=== PATIENT | male | born 1985 | race Caucasian/White ===

== ENCOUNTER 2021-05-30 04:53 | Inpatient (IN) | payer OTHER, SELFPAY ==
[2021-05-30] VITALS (9 sets, daily range): BP systolic 116–135; BP diastolic 67–79; PULSE 69–120; RESP 16–30; TEMP 36.3–39.6; O2SAT 87–97; BMI 30.7
--- NOTE | ~2021-05-30 | XR_ITS ---
EXAMINATION: PORTABLE CHEST 1 VIEW CLINICAL INFORMATION: ? cough . COMPARISON: No recent pertinent prior studies are available for comparison. TECHNIQUE: Portable frontal view of the chest was obtained. FINDINGS: The lungs are well expanded. Coarsened reticular markings seen at the lung bases but no definitive focal infiltrate, effusion, edema, or pneumothorax. Cardiac and mediastinal silhouettes are within normal limits for technique. No acute bony abnormality seen. XR/XR chest 1V IMPRESSION: Coarsened reticular markings seen at the lung bases left more so than right. This does not have the typical appearance for consolidation. Very early infiltrate cannot be excluded. Clinical correlation and follow-up film would be helpful.
--- NOTE | ~2021-05-30 | CT_ITS ---
EXAMINATION: CTA CHEST PE STUDY CLINICAL INFORMATION: Reason for Exam COVID positive, elevated D-dimer, rule out PE COMPARISON: No pertinent prior studies are available for comparison. TECHNIQUE: Prior to contrast administration, noncontrast localization images were obtained. After the administration of 50 mL of Omnipaque nonionic IV contrast, contiguous thin slice helical images were obtained through the thorax. Reformatted MIP images in the coronal and sagittal planes were obtained at the acquisition workstation. This CT examination was performed using dose optimization techniques as appropriate, variously including the following: *Automated exposure control *Adjustment of mA and/or kV according to patient size (this includes techniques or standardized protocols for targeted exams where dose is matched to indication/reason for exam; i.e. extremities or head) *Use of iterative reconstruction technique DLP: 410 mGy-cm. FINDINGS: The bolus timing on this study was acceptable for visualization of the pulmonary arterial tree. There are no intraluminal pulmonary arterial filling defects present to suggest pulmonary embolism. Patchy bilateral airspace disease is seen with slight peripheral preservation consistent with atypical or viral infectious etiology. No abnormal pulmonary nodules or masses are appreciated. No significant hilar or mediastinal adenopathy. There is no evidence of pleural effusion or pneumothorax. The heart is normal in size. No evidence of ventricular septal bowing or right heart strain. Great vessels are normal. Otherwise the mediastinum is unremarkable. There is no pericardial effusion or pericardial thickening. Limited evaluation of the upper abdominal viscera is unremarkable. CT/CT angio chest PE protocol IMPRESSION: No evidence for pulmonary emboli. Patchy bilateral airspace disease is seen consistent with viral or atypical infectious etiology. VTE: Negative
[2021-05-30 06:12] LABS: Influenza A PCR NEGATIVE (Negative); Influenza B PCR NEGATIVE (Negative); Resp Syncy Virus RNA Qual PCR NEGATIVE (Negative)
[2021-05-30 06:15] LABS: SARS COV2 PCR INHOUSE POSITIVE (Negative)
[2021-05-30] MEDS: Acetaminophen 325 MG TABLET 975 MG PO (07:25)
--- NOTE | 2021-05-30 07:37 | ECG_ITS ---
Test Reason : UPPER RESPIRATORY Blood Pressure : / mmHG Vent. Rate : 105 BPM Atrial Rate : 105 BPM P-R Int : 138 ms QRS Dur : 092 ms QT Int : 330 ms P-R-T Axes : 039 049 016 degrees QTc Int : 436 ms Sinus tachycardia Otherwise normal ECG No previous ECGs available Referred By: Jurgen Wang Electronically Signed By:Reinaldo James
--- NOTE | 2021-05-30 07:38 | ED.GENADULT ---
HPI - General Adult General Chief complaint: Upper Respiratory Symptoms Stated complaint: COVID Symptoms Time Seen by Provider: 05/30/21 06:38 Source: patient Mode of arrival: ambulatory Limitations: no limitations History of Present Illness HPI narrative: 36-year-old male who presents emergency department for evaluation of COVID like symptoms. Patient states that his tested positive and had to be hospitalized at [facility] for 1 day secondary to viral pneumonia. Patient states that he has been sick for approximately 10 days. He complains of fever, chills, myalgias, arthralgias, fatigue, shortness of breath, chest pain, nausea without vomiting. Patient states that he is experiencing pain in the center of his chest which is worse with breathing and is mild to moderate intensity. He denied diarrhea or loss of sense of taste or smell. Related Data Allergies Allergy/AdvReac Type Severity Reaction Status Date / Time No Known Allergies Allergy Verified 05/30/21 05:12 Review of Systems Review of Systems: Yes all other systems are reviewed and are negative [facility] Past Medical History [facility] Narrative: Past medical history: None past surgical history: None. Social history: He denies tobacco use. He denies alcohol use. He denies drug use. Social History Social History Advance Directives: No Physical Exam Vital Signs: Vital Signs: Last Vital Signs Temp 98.4 F 05/30/21 10:26 Pulse 103 H 05/30/21 10:26 Resp 21 H 05/30/21 10:26 BP 119/70 05/30/21 10:26 Pulse Ox 95 05/30/21 10:26 Oxygen Flow Rate 2 05/30/21 09:19 Body Mass Index 30.7 Const: Other: Awake, alert, male, very pleasant and cooperative, diaphoretic, no respiratory distress or use of accessory muscles to breathe, he is diaphoretic HENMT: Head: Yes normal to inspection, Yes normocephalic and Yes atraumatic Ears: external ears normal General nose exam: Normal external nose present Face and sinus: Yes normal facial exam Mouth: Normal oral and palatal mucosa present Throat: Yes posterior oropharynx normal Eyes: General: appearance normal, both eyes and all related structures Pupils: Equal, round and reactive pupils present Neck: Neck: Yes normal visual inspection, Yes no lymphadenopathy, Yes trachea midline and Yes supple Chest: Chest palpation & inspection: normal inspection of the chest and normal palpation of entire chest wall Resp: Effort & Inspection: normal respiratory effort and able to speak in complete sentences Auscultation: clear to auscultation bilaterally Cardio: Rate: regular rate Rhythm: regular rhythm Heart sounds: S1 normal heart sound present, S2 normal heart sound present and no murmurs GI: Inspection: Yes normal to inspection Palpation (GI): Soft to palpation, nontender and no guarding Auscultation: normal bowel sounds : General: Yes no CVA tenderness Back/Spine/Pelvis: Back: no CVA tenderness Skin: General skin exam: no rashes or lesions noted and other (Diaphoretic, very hot to the touch) Neuro: Cranial nerves: Yes CN's II-XII intact bilaterally and Yes Equal, round and reactive pupils present Cognition (Neuro): normal cognition Motor exam (neuro): 5/5 motor strength present throughout Extrem: General: Yes normal to inspection Psych: Appearance: grossly normal Speech and movement: Normal speech and movement present Affect: normal affect Attitude: cooperative Thought process: Normal thought process present Thought content: Normal thought content present Course Course Course Narrative: 36-year-old male who presents emergency department for evaluation of COVID like symptoms times 10 days, patient's was recently diagnosed with COVID-[address] [facility] for viral pneumonia. The patient's symptoms are consistent with an acute viral infection. Vital signs reveal that he was febrile with a temperature of a 103.2?, patient was tachycardic with a pulse of 120, O2 saturations varied from 88% to 92% on the O2 saturation monitor. His physical examination revealed a normal lung exam and was otherwise unremarkable. Chest x-ray is consistent with a viral pneumonia. patient's COVID-19 test was positive. I ordered a CBC, CMP, D-dimer, PT/INR, PTT, lactic acid, troponin, EKG. The patient will be treated with normal saline IV x1 L, Decadron 10 mg IV, Reglan and 10 mg IV and Zithromax 500 mg orally. 1017: The patient's laboratory evaluation revealed a low white blood count of 4300 with a low absolute lymphocyte count of 0.7. Patient also has a low platelet count of [id number]. Of patient had an elevated D-dimer of 260. Chest x-ray is consistent with her stool/viral pneumonia. CT pulmonary angiogram PE protocol revealed no pulmonary embolism. Patient does have patchy bilateral airspace disease which is consistent with a viral or atypical infection. The patient's pulse oximetry monitor revealed episodes of hypoxia with his O2 saturation dropping down to ED 67%. The the patient's hypoxia was corrected with oxygen 2 L via nasal cannula. The patient's presentation is consistent with COVID-19 pneumonia with hypoxia. Given his hypoxia and his need for oxygen I will discuss admission with the covering hospitalist. 1033: I did discuss the patient's presentation with Dr. Pickens, the covering hospitalist and the patient will be admitted to the [facility] for further management. Medical Decision Making Lab Data Result diagrams: 05/30/21 07:47 05/30/21 07:47 Labs: Lab Results 05/30/21 05/30/21 05/30/21 Range/Units 05:25 07:47 07:47 WBC 4.3 L (4.8-10.8) X10*3/uL RBC 5.48 (4.60-5.80) X10*6/uL Hgb 15.6 (14.0-18.0) g/dl Hct 44.5 (42-52) % MCV 81.2 (80-98) fL MCH 28.5 (27.0-33.0) pg MCHC 35.1 (31.0-36.0) g/dl RDW 13.2 (11.0-16.0) % Plt Count 129 L (160-400) X10*3/uL MPV 10.0 (9.4-12.4) fL Immature Gran % (Auto) 0.2 (0.0-0.4) % Neut % (Auto) 76.5 H (45-73) % Lymph % (Auto) 16.8 L (20-40) % [place] % (Auto) 6.5 (2-11) % Eos % (Auto) 0.0 (0-4) % Baso % (Auto) 0.0 (0-2) % Lymph # (Auto) 0.7 L (1.2-4.9) X10*3/uL [place] # (Auto) 0.3 (0.1-1.2) X10*3/uL Eos # (Auto) 0.0 (0.0-0.4) X10*3/uL Baso # (Auto) 0.0 (0.0-0.2) X10*3/uL Abs Immat Gran (auto) 0.01 (0.00-0.03) X10*3/uL Absolute Neuts (auto) 3.3 (2.0-8.3) X10*3/uL Absolute Nucleated RBC 0.000 (0.0-0.012) X10*3/uL Nucleated RBC % (auto) 0.0 (0.0-0.2) /100WBC PT (9.9-13.0) SEC INR (0.9-1.1) APTT (24.1-38.0) SEC D-Dimer NG/ML Sodium 137 (135-145) mmol/L Potassium 3.5 (3.3-5.1) mmol/L Chloride 103 (96-108) mmol/L Carbon Dioxide 24 (22-29) mmol/L Anion Gap 14 (12-20) BUN 14 (9-16) mg/dL Creatinine 1.18 (0.5-1.4) mg/dL Estim Creat Clear Calc 105.2 Estimated GFR > 60 Random Glucose 106 (60-115) mg/dL Lactic Acid (0.5-2.0) mmol/L Calcium 8.6 (8.4-10.2) mg/dL Total Bilirubin 0.6 (0.0-1.0) mg/dL AST 48 H (5-37) U/L ALT 35 (0-40) U/L Alkaline Phosphatase 33 L (39-117) U/L Troponin I High Sens (<3.5-35.0) ng/L Total Protein 6.9 (6.5-8.0) g/dL Albumin 4.1 (3.5-5.0) g/dL Lipase 63 (8-78) U/L Coronavirus (PCR) POSITIVE A (Negative) Influenza Type A (PCR) NEGATIVE (Negative) Influenza Type B (PCR) NEGATIVE (Negative) RSV RNA Qual (PCR) NEGATIVE (Negative) 05/30/21 05/30/21 05/30/21 Range/Units 07:47 07:48 08:01 WBC (4.8-10.8) X10*3/uL RBC (4.60-5.80) X10*6/uL Hgb (14.0-18.0) g/dl Hct (42-52) % MCV (80-98) fL MCH (27.0-33.0) pg MCHC (31.0-36.0) g/dl RDW (11.0-16.0) % Plt Count (160-400) X10*3/uL MPV (9.4-12.4) fL Immature Gran % (Auto) (0.0-0.4) % Neut % (Auto) (45-73) % Lymph % (Auto) (20-40) % [place] % (Auto) (2-11) % Eos % (Auto) (0-4) % Baso % (Auto) (0-2) % Lymph # (Auto) (1.2-4.9) X10*3/uL [place] # (Auto) (0.1-1.2) X10*3/uL Eos # (Auto) (0.0-0.4) X10*3/uL Baso # (Auto) (0.0-0.2) X10*3/uL Abs Immat Gran (auto) (0.00-0.03) X10*3/uL Absolute Neuts (auto) (2.0-8.3) X10*3/uL Absolute Nucleated RBC (0.0-0.012) X10*3/uL Nucleated RBC % (auto) (0.0-0.2) /100WBC PT 14.4 H (9.9-13.0) SEC INR 1.3 H (0.9-1.1) APTT 36.1 (24.1-38.0) SEC D-Dimer 260 NG/ML Sodium (135-145) mmol/L Potassium (3.3-5.1) mmol/L Chloride (96-108) mmol/L Carbon Dioxide (22-29) mmol/L Anion Gap (12-20) BUN (9-16) mg/dL Creatinine (0.5-1.4) mg/dL Estim Creat Clear Calc Estimated GFR Random Glucose (60-115) mg/dL Lactic Acid 1.0 (0.5-2.0) mmol/L Calcium (8.4-10.2) mg/dL Total Bilirubin (0.0-1.0) mg/dL AST (5-37) U/L ALT (0-40) U/L Alkaline Phosphatase (39-117) U/L Troponin I High Sens 5.2 (<3.5-35.0) ng/L Total Protein (6.5-8.0) g/dL Albumin (3.5-5.0) g/dL Lipase (8-78) U/L Coronavirus (PCR) (Negative) Influenza Type A (PCR) (Negative) Influenza Type B (PCR) (Negative) RSV RNA Qual (PCR) (Negative)
[2021-05-30] MEDS: 0.9 % Sodium Chloride 1,000 ML 999 ML IV (07:48)
[2021-05-30 07:55] LABS: MANUAL DIFF FLAG NO
[2021-05-30] MEDS: Azithromycin 500 MG TABLET PO (07:58)
[2021-05-30] MEDS: dexAMETHasone sod phosphate 10 MG/ML VIAL IVPUSH (07:59)
[2021-05-30] MEDS: Metoclopramide HCl 10 MG/2 ML VIAL IVPUSH (07:59)
[2021-05-30] MEDS: Ketorolac Tromethamine 15 MG/ML VIAL 30 MG IVPUSH (07:59)
[2021-05-30 08:11] LABS: Hematocrit 44.5 % (42-52); Hemoglobin 15.6 g/dl (14.0-18.0); Imm Gran Abs Auto 0.01 X10*3/uL (0.00-0.03); Imm Gran Pct Auto 0.2 % (0.0-0.4); Lymphocytes Absolute Auto 0.7 X10*3/uL (1.2-4.9); Lymphocytes Percent Auto 16.8 % (20-40); Mean Corpuscular HGB Conc 35.1 g/dl (31.0-36.0); Mean Corpuscular Hemoglobin 28.5 pg (27.0-33.0); Mean Corpuscular Volume 81.2 fL (80-98); Monocytes Absolute Auto 0.3 X10*3/uL (0.1-1.2); Monocytes Percent Auto 6.5 % (2-11); Neutrophils Absolute Auto 3.3 X10*3/uL (2.0-8.3); Neutrophils Percent Auto 76.5 % (45-73); Platelet Count 129 X10*3/uL (160-400); Red Blood Count 5.48 X10*6/uL (4.60-5.80); Red Cell Distribution Width 13.2 % (11.0-16.0); White Blood Count 4.3 X10*3/uL (4.8-10.8)
[2021-05-30 08:20] LABS: Alanine Aminotransferase 35 U/L (0-40); Albumin Level 4.1 g/dL (3.5-5.0); Alkaline Phosphatase 33 U/L (39-117); Anion Gap 14 (12-20); Aspartate Amino Transferase 48 U/L (5-37); Bilirubin Total 0.6 mg/dL (0.0-1.0); Blood Urea Nitrogen 14 mg/dL (9-16); Calcium 8.6 mg/dL (8.4-10.2); Carbon Dioxide 24 mmol/L (22-29); Chloride 103 mmol/L (96-108); Creatinine Clr Calc Pharmacy 105.2; Estimated Glomerular Filt Rate > 60; Glucose Random 106 mg/dL (60-115); Lipase 63 U/L (8-78); Potassium 3.5 mmol/L (3.3-5.1); Sodium 137 mmol/L (135-145); Total Protein 6.9 g/dL (6.5-8.0)
[2021-05-30 08:23] LABS: Troponin-I High Sensitivity 5.2 ng/L (<3.5-35.0)
[2021-05-30 08:25] LABS: INTERNATIONAL NORM RATIO 1.3 (0.9-1.1); Prothrombin Time 14.4 SEC (9.9-13.0)
[2021-05-30 08:27] LABS: D Dimer 260 NG/ML; Partial Thromboplastin Time 36.1 SEC (24.1-38.0)
[2021-05-30] MEDS: iohexoL 350 MG/ML 100 ML INFUS..BTL 71 ML IV (09:45)
--- NOTE | 2021-05-30 11:15 | P.HPHOSP_ITS ---
History of Present Illness Date of Service: 05/30/21 Chief Complaint: fever, sob 36M presented with fever, sob. patient was exposed to spouse who had covid diagnosis. has been feeling ill for about 11 days. fevers, myalgias, diarrhea, sob. he is not vaccinated. he came to ED for worsening symptoms, found to have h ypoxia. Review of Systems Review of Systems: Constitutional: fevers Eyes: denies blurry vision ENT: denies sore throat CVS: denies chest pain Respiratory: dyspnea GI: see hpi : denies dysuria MSK: denies neck pain Skin: denies rash Neuro: denies specific motor weakness Psych: denies suicidal ideation Endocrine: denies heat/cold intolerance Hematologic: denies easy bleeding Allergy: denies hives PMFSH Family history: reviewed and not pertinent Social History (Updated 05/30/21 @ 11:18 by Antonio Hebert MD) Unable to assess alcohol history related to: Unknown Patient Tobacco Use Status: Tobacco use Unknown Use of substances other than those prescribed or required for medical reasons: No Advance Directives: No Meds Allergies Allergy/AdvReac Type Severity Reaction Status Date / Time No Known Allergies Allergy Verified 05/30/21 05:12 Active Medications: Current Medications Generic Name Dose Route Start Last Admin Trade Name Freq PRN Reason Stop Dose Admin Dexamethasone Sodium Phosphate 6 mg 05/31/21 09:00 Dexamethasone Sod Phosphate 4 Mg/Ml Vial IVPUSH DAILY GIOVANA Physical Exam Vital Signs and Narrative: Vital Signs: Last Vital Signs Temp 98.4 F 05/30/21 10:26 Pulse 103 H 05/30/21 10:26 Resp 21 H 05/30/21 10:26 BP 119/70 05/30/21 10:26 Pulse Ox 95 05/30/21 10:26 Oxygen Flow Rate 2 05/30/21 09:19 Body Mass Index 30.7 General: sob, diaphoretic HEENT: atraumatic Neck: normal to visual inspection CVS: S1, S2, RRR Resp: Crackles Chest: non tender GI: soft, non tender, non distended : no CVA tenderness Skin: no rashes Extremities: no edema Neuro: Oriented X3, grossly intact Psych: cooperative Results Labs CBC and Chem 7: 05/30/21 07:47 05/30/21 07:47 Labs: Laboratory Results - last 24 hr 05/30/21 05/30/21 05/30/21 05:25 07:47 07:47 MCV 81.2 MCH 28.5 MCHC 35.1 RDW 13.2 Plt Count 129 L MPV 10.0 Immature Gran % (Auto) 0.2 Neut % (Auto) 76.5 H Lymph % (Auto) 16.8 L [place] % (Auto) 6.5 Eos % (Auto) 0.0 Baso % (Auto) 0.0 Lymph # (Auto) 0.7 L [place] # (Auto) 0.3 Eos # (Auto) 0.0 Baso # (Auto) 0.0 Abs Immat Gran (auto) 0.01 Absolute Neuts (auto) 3.3 Absolute Nucleated RBC 0.000 Nucleated RBC % (auto) 0.0 PT INR APTT D-Dimer Anion Gap 14 Estim Creat Clear Calc 105.2 Estimated GFR > 60 Random Glucose 106 Lactic Acid Calcium 8.6 Total Bilirubin 0.6 AST 48 H ALT 35 Alkaline Phosphatase 33 L Troponin I High Sens Total Protein 6.9 Albumin 4.1 Lipase 63 Coronavirus (PCR) POSITIVE A Influenza Type A (PCR) NEGATIVE Influenza Type B (PCR) NEGATIVE RSV RNA Qual (PCR) NEGATIVE 05/30/21 05/30/21 05/30/21 07:47 07:48 08:01 MCV MCH MCHC RDW Plt Count MPV Immature Gran % (Auto) Neut % (Auto) Lymph % (Auto) [place] % (Auto) Eos % (Auto) Baso % (Auto) Lymph # (Auto) [place] # (Auto) Eos # (Auto) Baso # (Auto) Abs Immat Gran (auto) Absolute Neuts (auto) Absolute Nucleated RBC Nucleated RBC % (auto) PT 14.4 H INR 1.3 H APTT 36.1 D-Dimer 260 Anion Gap Estim Creat Clear Calc Estimated GFR Random Glucose Lactic Acid 1.0 Calcium Total Bilirubin AST ALT Alkaline Phosphatase Troponin I High Sens 5.2 Total Protein Albumin Lipase Coronavirus (PCR) Influenza Type A (PCR) Influenza Type B (PCR) RSV RNA Qual (PCR) Imaging Radiologist's Impressions: Impressions Chest X-Ray 05/30/21 06:34 IMPRESSION: Coarsened reticular markings seen at the lung bases left more so than right. This does not have the typical appearance for consolidation. Very early infiltrate cannot be excluded. Clinical correlation and follow-up film would be helpful. Chest CTA 05/30/21 09:04 IMPRESSION: No evidence for pulmonary emboli. Patchy bilateral airspace disease is seen consistent with viral or atypical infectious etiology. VTE: Negative Assessment and Plan (1) Pneumonia due to 2019 novel coronavirus: Status: Acute 36M presented with sob, fevers, found to have covid/hypoxia acute hypoxic respiratory failure, viral sepsis, due to covid pneumonia decadron wean o2 as tolerated monitor prognostic labs cte prophylaxis - xarelto Quality Stroke Does the patient have a stroke diagnosis?: No VTE Prior VTE?: No VTE Risk Level:: Medical - moderate - high VTE Device Contraindication: Treatment Not Indicated VTE Drug Contraindication: N/A - Med Ordered
--- NOTE | 2021-05-30 11:59 | PC.NURSE ---
x1 attempt to give report- awaiting callback
--- NOTE | 2021-05-30 12:11 | PC.NURSE ---
report given to liborio medina on med surg
[2021-05-30] MEDS: 0.9 % Sodium Chloride Flush 3 ML SYRINGE IVFLUSH ×2 (15:21→20:11)
[2021-05-31] VITALS (8 sets, daily range): BP systolic 116–138; BP diastolic 62–77; PULSE 80–100; RESP 18–20; TEMP 36.5–38.9; O2SAT 91–98
[2021-05-31 06:48] LABS: Hematocrit 43.2 % (42-52); Hemoglobin 14.9 g/dl (14.0-18.0); Mean Corpuscular HGB Conc 34.5 g/dl (31.0-36.0); Mean Corpuscular Hemoglobin 28.3 pg (27.0-33.0); Mean Platelet Volume 9.7 fL (9.4-12.4); Platelet Count 151 X10*3/uL (160-400); Red Blood Count 5.27 X10*6/uL (4.60-5.80); Red Cell Distribution Width 13.2 % (11.0-16.0); White Blood Count 6.3 X10*3/uL (4.8-10.8)
[2021-05-31 07:01] LABS: D Dimer 207 NG/ML
[2021-05-31 07:13] LABS: Anion Gap 12 (12-20); Blood Urea Nitrogen 15 mg/dL (9-16); C Reactive Protein 1.92 mg/dL (< or = 0.50); Calcium 8.7 mg/dL (8.4-10.2); Carbon Dioxide 26 mmol/L (22-29); Chloride 106 mmol/L (96-108); Creatinine Clr Calc Pharmacy 119.4; Estimated Glomerular Filt Rate > 60; Glucose Fasting 119 mg/dL (60-99); Lactate Dehydrogenase 272 U/L (118-273); Sodium 139 mmol/L (135-145)
[2021-05-31] MEDS: dexAMETHasone sod phosphate 4 MG/ML VIAL 6 MG IVPUSH (09:14)
[2021-05-31] MEDS: 0.9 % Sodium Chloride Flush 3 ML SYRINGE IVFLUSH ×3 (09:14→22:04)
[2021-05-31] MEDS: Rivaroxaban 10 MG TABLET PO (09:15)
--- NOTE | 2021-05-31 09:17 | HO.PM.IMPN ---
Subjective Subjective Date of Service: 05/31/21 Interval History: sob Constitutional Constitutional: Reports no additional constitutional complaints Eyes Eyes: Reports no additional eye complaints Physical Exam Vital Signs: Vital Signs: Last Vital Signs Temp 98.7 F 05/31/21 08:00 Pulse 91 05/31/21 08:00 Resp 18 05/31/21 08:00 BP 128/77 05/31/21 08:00 Pulse Ox 93 05/31/21 08:00 Oxygen Flow Rate 2 05/30/21 09:19 Body Mass Index 30.7 General: AO X 3, diaphoretic, sob Resp: Crackles CVS: S1,S2,RRR GI: soft, non tender, non distended Neuro: motor grossly intact Psych: appropriate affect Objective Data Current Medications Generic Name Dose Route Start Last Admin Trade Name Tayeq PRN Reason Stop Dose Admin Dexamethasone Sodium Phosphate 6 mg 05/31/21 09:00 05/31/21 09:14 Dexamethasone Sod Phosphate 4 Mg/Ml Vial IVPUSH 6 mg DAILY GIOVANA Administration Rivaroxaban 10 mg 05/31/21 09:00 05/31/21 09:15 Rivaroxaban 10 Mg Tablet PO 10 mg DAILY GIOVANA Administration Sodium Chloride 3 ml 05/30/21 16:00 05/31/21 09:14 0.9 % Sodium Chloride Flush 3 Ml Syringe IVFLUSH 3 ml QSHIFT GIOVANA Administration Labs CBC & Chem 7: 05/31/21 06:07 05/31/21 06:07 Labs: Laboratory Results - last 24 hr 05/31/21 05/31/21 05/31/21 06:07 06:07 06:07 MCV 82.0 MCH 28.3 MCHC 34.5 RDW 13.2 Plt Count 151 L MPV 9.7 Absolute Nucleated RBC 0.000 Nucleated RBC % (auto) 0.0 D-Dimer 207 Anion Gap 12 Estim Creat Clear Calc 119.4 Estimated GFR > 60 Fasting Glucose 119 H Calcium 8.7 Lactate Dehydrogenase 272 C-Reactive Protein 1.92 H Assessment and Plan (1) Pneumonia due to 2019 novel coronavirus: Status: Acute Assessment and Plan: ?36M presented with sob, fevers, found to have covid/hypoxia acute hypoxic respiratory failure, viral sepsis, due to covid pneumonia decadron day / wean o2 as tolerated monitor prognostic labs cte prophylaxis - xarelto Quality Stroke Does the patient have a stroke diagnosis?: No VTE Prior VTE?: No VTE Risk Level:: Medical - moderate - high VTE Device Contraindication: Treatment Not Indicated VTE Drug Contraindication: N/A - Med Ordered
[2021-05-31] MEDS: guaiFENesin 100 MG/5 ML LIQUID PO ×2 (09:30→22:04)
[2021-05-31] MEDS: Acetaminophen 325 MG TABLET 650 MG PO (12:00)
--- NOTE | 2021-05-31 14:10 | MHC.CM.PN ---
COVID +: Called patient in room; no answer. Called (Pina), no answer and left a VM requesting a return call for interview. CM to follow.
--- NOTE | 2021-05-31 15:33 | MHC.CM.PN ---
Attempted a second time to call patient in his room. No answer. 3 total calls made today (twice to patient, once to w/message left requesting return call). CM to make attempt tomorrow 06/01/21. CM to follow.
[2021-06-01] VITALS: BP 115/60; PULSE 105; RESP 18; TEMP 37.1; O2SAT 93
[2021-06-01 04:00] VITALS: BP 123/57; PULSE 77; RESP 16; TEMP 36.8; O2SAT 89
[2021-06-01 06:55] LABS: Hematocrit 42.6 % (42-52); Hemoglobin 14.6 g/dl (14.0-18.0); Mean Corpuscular HGB Conc 34.3 g/dl (31.0-36.0); Mean Corpuscular Hemoglobin 28.2 pg (27.0-33.0); Mean Corpuscular Volume 82.2 fL (80-98); Platelet Count 172 X10*3/uL (160-400); Red Blood Count 5.18 X10*6/uL (4.60-5.80); Red Cell Distribution Width 13.4 % (11.0-16.0); White Blood Count 6.5 X10*3/uL (4.8-10.8)
[2021-06-01 07:05] VITALS: O2SAT 91
[2021-06-01 07:22] LABS: Anion Gap 18 (12-20); Blood Urea Nitrogen 13 mg/dL (9-16); C Reactive Protein 1.55 mg/dL (< or = 0.50); Calcium 8.4 mg/dL (8.4-10.2); Carbon Dioxide 23 mmol/L (22-29); Chloride 103 mmol/L (96-108); Creatinine Clr Calc Pharmacy 119.4; Estimated Glomerular Filt Rate > 60; Glucose Fasting 109 mg/dL (60-99); Lactate Dehydrogenase 357 U/L (118-273); Potassium 4.5 mmol/L (3.3-5.1); Sodium 139 mmol/L (135-145)
[2021-06-01 07:54] LABS: D Dimer < 200 NG/ML
[2021-06-01 08:00] VITALS: BP 126/81; PULSE 98; RESP 20; TEMP 37.2; O2SAT 94
[2021-06-01] MEDS: Rivaroxaban 10 MG TABLET PO (08:18)
[2021-06-01] MEDS: dexAMETHasone sod phosphate 4 MG/ML VIAL 6 MG IVPUSH (08:18)
[2021-06-01] MEDS: guaiFENesin 100 MG/5 ML LIQUID PO (08:18)
[2021-06-01] MEDS: 0.9 % Sodium Chloride Flush 3 ML SYRINGE IVFLUSH (08:19)
--- NOTE | 2021-06-01 09:36 | MHC.CM.PN ---
pt lives c his in their home. he reports that he is independent in his care. his can help him if he needs it, this will include a ride home at dc. pt denies the need for vna at dc. dc plan is home no svcs when medically stable. cm to cont. to follow.
--- NOTE | 2021-06-01 11:23 | PM.DS ---
DS: Providers Provider Date of Service: 06/01/21 Date of admission: 05/30/21 11:14 Primary care physician: Unknown Physician DS: Diagnosis Discharge Diagnosis (1) Pneumonia due to 2019 novel coronavirus: Status: Acute DS: Medications Discharge Medications Home Medications: Previous Rx's Medication Instructions Recorded dexamethasone 6 mg tablet 6 mg PO DAILY #7 tab 06/01/21 (Decadron) guaifenesin 100 mg/5 mL oral liquid 100 mg PO Q6H PRN #473 ml 06/01/21 DS: Summary Hospital Course Hospital Course: patient was admitted for viral sepsis and acute hypoxic respiratory failure due to COVID 19. he was treated with decadron and Oxygen. his symptoms improved. he was able to be weaned off oxygen. patient will be discharged home with 7 more days of decadron. Time Spent with Patient Time attestation: Total time spent providing and/or coordinating discharge services: Discharge coordination time: Greater than 30 minutes Quality: Stroke Does the patient have a stroke diagnosis?: No Physical Exam Vital Signs: Vital Signs: Last Vital Signs Temp 98.9 F 06/01/21 08:00 Pulse 98 06/01/21 08:00 Resp 20 06/01/21 08:00 BP 126/81 06/01/21 08:00 Pulse Ox 94 06/01/21 08:00 Oxygen Flow Rate 2 05/30/21 09:19 Body Mass Index 30.7 General: AO X 3, no acute distress Resp: CTA bilateral CVS: S1,S2,RRR GI: soft, non tender, non distended Neuro: motor grossly intact Psych: appropriate affect DS: Data Data Completed and Pending Labs on day of discharge: Laboratory Results - last 24 hr 06/01/21 06/01/21 06/01/21 05:49 05:50 05:50 WBC 6.5 RBC 5.18 Hgb 14.6 Hct 42.6 MCV 82.2 MCH 28.2 MCHC 34.3 RDW 13.4 Plt Count 172 MPV 10.0 Absolute Nucleated RBC 0.000 Nucleated RBC % (auto) 0.0 D-Dimer < 200 Sodium 139 Potassium 4.5 Chloride 103 Carbon Dioxide 23 Anion Gap 18 BUN 13 Creatinine 1.04 Estim Creat Clear Calc 119.4 Estimated GFR > 60 Fasting Glucose 109 H Calcium 8.4 Lactate Dehydrogenase 357 H C-Reactive Protein 1.55 H Preliminary micro results at discharge 05/30/21 08:20 Blood Culture - Preliminary Blood - Venous No growth after 48 hours. 05/30/21 07:47 Blood Culture - Preliminary Blood - Venous No growth after 48 hours. Discharge Plan Discharge Patient Disposition: Home, Self-Care Discharge Diagnosis: covid Referrals: Physician,Unknown [Primary Care Provider] - 1 Week Discharge Medications: New guaifenesin 100 mg/5 mL Liquid 100 mg PO Q6H PRN (Reason: cough) Qty: 473 RF: 0 dexamethasone [Decadron] 6 mg tablet 6 mg PO DAILY Qty: 7 RF: 0 Discharge Orders: Discharge Order (Routine); Ordered 06/01/21 Ordered By: Antonio Hebert Diet: advance to usual diet Activity on Discharge: As tolerated Stand Alone Forms: Patient Portal Discharge page Care Plan Goals: recovery Health Concerns: covid Plan of Treatment: For most adults with COVID-19 illness, isolation and precautions?can be discontinued 10 days after symptom onset*?and after resolution of fever for at least 24 hours, without the use of fever-reducing medications, and with improvement of other symptoms... monitor O2, if persistently less than 90% return to ED Assessment: see above
== END 2021-06-01 12:00 | disposition home or self-care (01) | DRG 720 ==
LOC: HO.ED 10:34 → HO.IMC 11:50
PROVIDERS: Admitting Provider Internal Medicine; Emergency Provider Emergency Medicine Emergency Medical Services; Visit Provider Internal Medicine
DX: A41.89 Other specified sepsis (principal); J96.01 Acute respiratory failure with hypoxia; J12.82 Pneumonia due to coronavirus disease 2019; U07.1 COVID-19
CPT/HCPCS: 0241U; 11104; 36415; 71045; 71275; 80048; 80053; 80076; 82550; 82728; 83605; 83615; 83690; 83735; 83880; 84145; 84484; 85025; 85027; 85379; 85610; 85730; 86140; 87040; 93005; 99285; J1100; J1885; J2765; Q9967

== ENCOUNTER 2021-06-02 15:34 | Inpatient (IN) | payer OTHER, SELFPAY ==
--- NOTE | ~2021-06-02 | XR_ITS ---
EXAMINATION: XR CHEST CLINICAL INFORMATION: Covid positive with worsening shortness of breath COMPARISON: Chest radiograph and CT chest dated 05/30/2021 TECHNIQUE: Frontal view of the chest was obtained. FINDINGS: Compared to the prior chest radiograph, lung volumes have decreased in pulmonary infiltrates have increased consistent with progressive Covid related to pneumonia. Infiltrates are seen scattered throughout the lungs. No effusions. Heart size normal. XR/XR chest 1V IMPRESSION: Progressive pulmonary infiltrates consistent with worsening Covid 19 pneumonia.
[2021-06-02 15:45] VITALS: O2SAT 87
[2021-06-02 15:48] VITALS: BP 118/83; PULSE 89; RESP 24; TEMP 36.8; O2SAT 95; BMI 30.7
--- NOTE | 2021-06-02 16:29 | ECG_ITS ---
Test Reason : SOB Blood Pressure : / mmHG Vent. Rate : 098 BPM Atrial Rate : 098 BPM P-R Int : 136 ms QRS Dur : 094 ms QT Int : 348 ms P-R-T Axes : 040 025 017 degrees QTc Int : 444 ms Normal sinus rhythm Normal ECG When compared with ECG of 30-MAY-2021 08:11, No significant change was found Referred By: Jeanie Araiza Electronically Signed By:ESTHELA LONGORIA MD
--- NOTE | 2021-06-02 16:53 | ED_ITS ---
HPI - SOB/Dyspnea General Chief Complaint: Dyspnea Stated Complaint: Covid+ diff breathing Time Seen by Provider: 06/02/21 16:06 Source: patient Mode of arrival: ambulatory Limitations: no limitations History of Present Illness HPI Narrative: 36-year-old male known COVID positive here with shortness of breath increasing with oxygen saturation 88% at home. Of note patient was admitted to this facility 05/30-06/01 for COVID. He was with Decadron and oxygen and improved on a course of Decadron. Patient tells me he is taking this. Today feels worse. More short of breath, weak, only able to walk several steps without having to take a breath. Had left over azithromycin which he started today. No fevers or chills. No leg swelling, pain, chest pain. Had not received the COVID vaccine. Prior to admission on Tuesday he had been sick for approximately 11 days. is COVID positive at home. Related Data Previous Rx's Medication Instructions Recorded dexamethasone 6 mg tablet 6 mg PO DAILY #7 tab 06/01/21 (Decadron) guaifenesin 100 mg/5 mL oral liquid 100 mg PO Q6H PRN #473 ml 06/01/21 Allergies Allergy/AdvReac Type Severity Reaction Status Date / Time No Known Allergies Allergy Verified 06/02/21 15:47 Review of Systems Review of Systems: Yes all other systems are reviewed and are negative Constitutional: Constitutional: Reports no additional constitutional complaints, Denies body ache(s), Denies chills, Denies fever(s), Denies headache(s) and Reports weakness Eyes: Eyes: Reports no additional eye complaints and Denies change in vision ENT: Reports system reviewed and no additional complaints, except as documented, Denies dizziness, Denies headache(s), Denies nasal congestion, Denies nasal discharge and Denies neck pain Cardiovascular: Cardiovascular: Reports no additional cardiovascular complaints, Denies chest pain, Denies leg edema and Reports dyspnea Respiratory: Respiratory: Reports no additional respiratory complaints, Denies cough and Reports dyspnea Gastrointestinal: Gastrointestinal: Reports no additional gastrointestinal complaints, Denies abdominal pain, Denies diarrhea, Denies nausea and Denies vomiting Genitourinary: Genitourinary: Denies urinary incontinence Musculoskeletal: Musculoskeletal: Reports no additional musculoskeletal complaints, Denies back pain, Denies arthralgias, Denies joint swelling, Denies neck pain, Denies numbness and Denies tingling Integumentary/Breasts: Skin/Breast: Reports system reviewed and no additional complaints, except as docu and Denies rash Neurologic: Reports system reviewed and no additional complaints, except as documented, Denies Abnormal speech present, Denies dizziness, Denies headache(s), Denies numbness, Denies tingling and Reports weakness PMFSH Past Medical History Attestation statement: The following information was validated with the patient. Source: old records reviewed and nursing notes reviewed Social History Social History Household Members: Spouse and Children Housing: House Do you presently have visiting nurse or other home services: No Unable to assess alcohol history related to: Unknown Patient Tobacco Use Status: Never used Tobacco Advance Directives: No Advance Directives Information Provided: No service: No Current occupational status: unemployed Physical Exam Vital Signs: Vital Signs: Last Vital Signs Temp 98.2 F 06/02/21 15:48 Pulse 97 06/02/21 17:36 Resp 24 H 06/02/21 17:36 BP 118/80 06/02/21 17:36 Pulse Ox 95 06/02/21 17:36 Oxygen Flow Rate 4 06/02/21 15:48 Body Mass Index 30.7 Const: General: cooperative, healthy appearing, comfortable and no acute distress Orientation/consciousness: patient oriented x3 Limitations: no limitations HENMT: Head: Yes normal to inspection Ears: hearing grossly normal bilaterally General nose exam: Normal external nose present Face and sinus: Yes normal facial exam Mouth: Normal oral and palatal mucosa present Throat: Yes posterior oropharynx normal Eyes: General: appearance normal, both eyes and all related structures Pupils: Equal, round and reactive pupils present Neck: Neck: Yes normal visual inspection Chest: Chest palpation & inspection: normal inspection of the chest Resp: Other: Diminished breath sounds bilaterally Effort & Inspection: normal respiratory effort Auscultation: clear to auscultation bilaterally Cardio: Rate: regular rate Rhythm: regular rhythm Peripheral pulses: Peripheral pulses 2+ throughout GI: Inspection: Yes normal to inspection Palpation (GI): Soft to palpation and nontender Auscultation: normal bowel sounds Back/Spine/Pelvis: Thoracic/Lumbar Spine: thoracic and lumbar spine normal to inspection Skin: General skin exam: no rashes or lesions noted Neuro: General: patient oriented x3, no focal motor deficits and normal sensation to monofilament Cranial nerves: Yes Equal, round and reactive pupils present Cognition (Neuro): normal cognition Speech: No Abnormal speech present Gait exam (Neuro): Normal gait present Motor exam (neuro): 5/5 motor strength present throughout Extrem: General: Yes normal to inspection, Yes no pedal edema and Yes no calf tenderness Course Course Course Narrative: 36-year-old male known COVID positive here with increasing shortness of breath and weakness with a room air saturation of 88%. Of note patient was discharged from this facility yesterday after being admitted and treated with Decadron. He is currently still taking Decadron. On arrival the patient's oxygen saturation was 88%. He has mild tachypnea with a rate of 24-26. He is afebrile. Will check labs, EKG, chest x-ray. Discussed with medicine as patient will require admission due to hypoxia. Requesting repeat COVID screen. Hypoxia and tachypnea from a viral infection. 1800-Admitted to medicine. MDM - SOB/Dyspnea MDM Narrative Medical decision making narrative: COVID-19, pneumonia, PE Medical Records Attestation: I reviewed the patient's medical records. Lab Data Attestation: I reviewed the patient's lab results. Result diagrams: 06/02/21 17:35 06/02/21 17:35 Labs: Lab Results 06/02/21 06/02/21 06/02/21 Range/Units 17:35 17:35 17:35 WBC 6.6 (4.8-10.8) X10*3/uL RBC 5.52 (4.60-5.80) X10*6/uL Hgb 15.6 (14.0-18.0) g/dl Hct 44.9 (42-52) % MCV 81.3 (80-98) fL MCH 28.3 (27.0-33.0) pg MCHC 34.7 (31.0-36.0) g/dl RDW 13.3 (11.0-16.0) % Plt Count 210 (160-400) X10*3/uL MPV 9.3 L (9.4-12.4) fL Immature Gran % (Auto) 0.5 H (0.0-0.4) % Neut % (Auto) 88.7 H (45-73) % Lymph % (Auto) 5.3 L (20-40) % [place] % (Auto) 5.5 (2-11) % Eos % (Auto) 0.0 (0-4) % Baso % (Auto) 0.0 (0-2) % Lymph # (Auto) 0.4 L (1.2-4.9) X10*3/uL [place] # (Auto) 0.4 (0.1-1.2) X10*3/uL Eos # (Auto) 0.0 (0.0-0.4) X10*3/uL Baso # (Auto) 0.0 (0.0-0.2) X10*3/uL Abs Immat Gran (auto) 0.03 (0.00-0.03) X10*3/uL Absolute Neuts (auto) 5.8 (2.0-8.3) X10*3/uL Absolute Nucleated RBC 0.000 (0.0-0.012) X10*3/uL Nucleated RBC % (auto) 0.0 (0.0-0.2) /100WBC PT 13.0 (9.9-13.0) SEC INR 1.1 (0.9-1.1) D-Dimer 289 NG/ML Sodium 140 (135-145) mmol/L Potassium 4.3 (3.3-5.1) mmol/L Chloride 104 (96-108) mmol/L Carbon Dioxide 26 (22-29) mmol/L Anion Gap 14 (12-20) BUN 12 (9-16) mg/dL Creatinine 0.85 (0.5-1.4) mg/dL Estim Creat Clear Calc 145.9 Estimated GFR > 60 Random Glucose 137 H (60-115) mg/dL Lactic Acid (0.5-2.0) mmol/L Calcium 8.8 (8.4-10.2) mg/dL Magnesium 2.2 (1.6-2.6) mg/dL Ferritin 666 H (20-250) ng/mL Total Bilirubin 0.7 (0.0-1.0) mg/dL Direct Bilirubin 0.4 (0.0-0.5) mg/dL AST 60 H (5-37) U/L ALT 60 H (0-40) U/L Alkaline Phosphatase 34 L (39-117) U/L Lactate Dehydrogenase 355 H (118-273) U/L Total Creatine Kinase 493 H (38-174) U/L Troponin I High Sens (<3.5-35.0) ng/L C-Reactive Protein 3.10 H (< or = 0.50) mg/dL B-Natriuretic Peptide (<100) pg/mL Total Protein 7.0 (6.5-8.0) g/dL Albumin 4.0 (3.5-5.0) g/dL Procalcitonin ng/mL 06/02/21 06/02/21 06/02/21 Range/Units 17:35 17:35 17:35 WBC (4.8-10.8) X10*3/uL RBC (4.60-5.80) X10*6/uL Hgb (14.0-18.0) g/dl Hct (42-52) % MCV (80-98) fL MCH (27.0-33.0) pg MCHC (31.0-36.0) g/dl RDW (11.0-16.0) % Plt Count (160-400) X10*3/uL MPV (9.4-12.4) fL Immature Gran % (Auto) (0.0-0.4) % Neut % (Auto) (45-73) % Lymph % (Auto) (20-40) % [place] % (Auto) (2-11) % Eos % (Auto) (0-4) % Baso % (Auto) (0-2) % Lymph # (Auto) (1.2-4.9) X10*3/uL [place] # (Auto) (0.1-1.2) X10*3/uL Eos # (Auto) (0.0-0.4) X10*3/uL Baso # (Auto) (0.0-0.2) X10*3/uL Abs Immat Gran (auto) (0.00-0.03) X10*3/uL Absolute Neuts (auto) (2.0-8.3) X10*3/uL Absolute Nucleated RBC (0.0-0.012) X10*3/uL Nucleated RBC % (auto) (0.0-0.2) /100WBC PT (9.9-13.0) SEC INR (0.9-1.1) D-Dimer NG/ML Sodium (135-145) mmol/L Potassium (3.3-5.1) mmol/L Chloride (96-108) mmol/L Carbon Dioxide (22-29) mmol/L Anion Gap (12-20) BUN (9-16) mg/dL Creatinine (0.5-1.4) mg/dL Estim Creat Clear Calc Estimated GFR Random Glucose (60-115) mg/dL Lactic Acid 1.1 (0.5-2.0) mmol/L Calcium (8.4-10.2) mg/dL Magnesium (1.6-2.6) mg/dL Ferritin (20-250) ng/mL Total Bilirubin (0.0-1.0) mg/dL Direct Bilirubin (0.0-0.5) mg/dL AST (5-37) U/L ALT (0-40) U/L Alkaline Phosphatase (39-117) U/L Lactate Dehydrogenase (118-273) U/L Total Creatine Kinase (38-174) U/L Troponin I High Sens 3.7 (<3.5-35.0) ng/L C-Reactive Protein (< or = 0.50) mg/dL B-Natriuretic Peptide 11 (<100) pg/mL Total Protein (6.5-8.0) g/dL Albumin (3.5-5.0) g/dL Procalcitonin 0.09 ng/mL Imaging Data Chest x-ray: Attestation: I personally reviewed and interpreted this imaging study as follows: Radiologist's impression: FINDINGS: Compared to the prior chest radiograph, lung volumes have decreased in pulmonary infiltrates have increased consistent with progressive Covid related to pneumonia. Infiltrates are seen scattered throughout the lungs. No effusions. Heart size normal. XR/XR chest 1V IMPRESSION: Progressive pulmonary infiltrates consistent with worsening Covid 19 pneumonia. ECG Data Attestation: I personally reviewed and interpreted this ECG as follows: ECG interpretation date: 06/02/21 ECG interpretation time: 10:28 Interpretation: Normal sinus rhythm with a rate of 98, normal DE, normal QRS, normal QT Discharge Plan Discharge Clinical Impression: Pneumonia due to 2019 novel coronavirus, Hypoxia Patient Disposition: Admitted As Inpatient
[2021-06-02 17:36] VITALS: BP 118/80; PULSE 97; RESP 24; O2SAT 95
[2021-06-02 17:46] LABS: MANUAL DIFF FLAG NO
[2021-06-02 17:48] LABS: Hematocrit 44.9 % (42-52); Hemoglobin 15.6 g/dl (14.0-18.0); Imm Gran Abs Auto 0.03 X10*3/uL (0.00-0.03); Imm Gran Pct Auto 0.5 % (0.0-0.4); Lymphocytes Absolute Auto 0.4 X10*3/uL (1.2-4.9); Lymphocytes Percent Auto 5.3 % (20-40); Mean Corpuscular HGB Conc 34.7 g/dl (31.0-36.0); Mean Corpuscular Hemoglobin 28.3 pg (27.0-33.0); Mean Corpuscular Volume 81.3 fL (80-98); Mean Platelet Volume 9.3 fL (9.4-12.4); Monocytes Absolute Auto 0.4 X10*3/uL (0.1-1.2); Monocytes Percent Auto 5.5 % (2-11); Neutrophils Absolute Auto 5.8 X10*3/uL (2.0-8.3); Neutrophils Percent Auto 88.7 % (45-73); Platelet Count 210 X10*3/uL (160-400); Red Blood Count 5.52 X10*6/uL (4.60-5.80); Red Cell Distribution Width 13.3 % (11.0-16.0); White Blood Count 6.6 X10*3/uL (4.8-10.8)
--- NOTE | 2021-06-02 17:52 | PM.IMHP ---
History of Present Illness Date of Service: 06/02/21 Chief Complaint: shortness of breath, known covid patient discharged yesterday 36 year old male healthy, unvaccinated for covid who contracted covid from about 14 days ago. He was admitted to the hospital for hypoxia and discharged yesterday after 2 days in the hospital with oxygen and steroid therapy. He returns today because his oxygen level has been droping to as los as 85 to 88 at home, although without any significant increased in his shortness of breath. CXR shows progressive pulmonary infiltrate consistent with worsen covid. His oxygen level is now 94% 4 liters by nasal canula. Review of Systems Review of Systems: Gen: no fever Resp: +sob, cough CV: no chest, no BURNETT, no leg edema GI: No n/v, no abd pain Neuro: No confusion Yes all other systems are reviewed and are [facility] Social History Household Members: Spouse and Children Housing: House Do you presently have visiting nurse or other home services: No Unable to assess alcohol history related to: Unknown Patient Tobacco Use Status: Never used Tobacco Advance Directives: No Advance Directives Information Provided: No service: No Current occupational status: unemployed Meds Allergies Allergy/AdvReac Type Severity Reaction Status Date / Time No Known Allergies Allergy Verified 06/02/21 15:47 Active Medications: Current Medications Generic Name Dose Route Start Last Admin Trade Name Freq PRN Reason Stop Dose Admin Pharmacy Consult 1 each 06/02/21 16:30 Consult Rx Perform Med Rec MISCELLANE ONCE PRN Consult order Physical Exam Vital Signs and Narrative: Vital Signs: Last Vital Signs Temp 98.2 F 06/02/21 15:48 Pulse 97 06/02/21 17:36 Resp 24 H 06/02/21 17:36 BP 118/80 06/02/21 17:36 Pulse Ox 95 06/02/21 17:36 Oxygen Flow Rate 4 06/02/21 15:48 Body Mass Index 30.7 Results Labs CBC and Chem 7: 06/02/21 17:35 06/02/21 17:35 Labs: Laboratory Results - last 24 hr 06/02/21 17:35 MCV 81.3 MCH 28.3 MCHC 34.7 RDW 13.3 Plt Count 210 MPV 9.3 L Immature Gran % (Auto) 0.5 H Neut % (Auto) 88.7 H Lymph % (Auto) 5.3 L [place] % (Auto) 5.5 Eos % (Auto) 0.0 Baso % (Auto) 0.0 Lymph # (Auto) 0.4 L [place] # (Auto) 0.4 Eos # (Auto) 0.0 Baso # (Auto) 0.0 Abs Immat Gran (auto) 0.03 Absolute Neuts (auto) 5.8 Absolute Nucleated RBC 0.000 Nucleated RBC % (auto) 0.0 Imaging Radiologist's Impressions: Impressions Chest X-Ray 06/02/21 16:29 IMPRESSION: Progressive pulmonary infiltrates consistent with worsening Covid 19 pneumonia. Assessment and Plan (1) Pneumonia due to 2019 novel coronavirus: Status: Acute (2) Acute respiratory failure with hypoxia: Status: Acute 36 year old with acute hypoxic respiratory failure due to covid 19, nearly 2 weeks into the diseas, readmitted just a day after discharge. plan: Supportive care with oxygen, titriate to O2 sat 92 or better, IV Decadron, empiric Doxycyline. Consider Pulmonology consult if worsening. Quality Stroke Does the patient have a stroke diagnosis?: No Reason for No Anti-thrombotic by Day Two: N/A - Med Ordered VTE Prior VTE?: No VTE Risk Level:: Medical - moderate - high VTE Device Contraindication: N/A - Device Ordered VTE Drug Contraindication: N/A - Med Ordered
[2021-06-02 17:53] LABS: INTERNATIONAL NORM RATIO 1.1 (0.9-1.1)
[2021-06-02 17:56] LABS: D Dimer 289 NG/ML
[2021-06-02 18:14] LABS: Lactic Acid 1.1 mmol/L (0.5-2.0)
[2021-06-02 18:20] LABS: Alanine Aminotransferase 60 U/L (0-40); Alkaline Phosphatase 34 U/L (39-117); Anion Gap 14 (12-20); Aspartate Amino Transferase 60 U/L (5-37); Bilirubin Direct 0.4 mg/dL (0.0-0.5); Bilirubin Total 0.7 mg/dL (0.0-1.0); Blood Urea Nitrogen 12 mg/dL (9-16); Calcium 8.8 mg/dL (8.4-10.2); Carbon Dioxide 26 mmol/L (22-29); Chloride 104 mmol/L (96-108); Creatinine Clr Calc Pharmacy 145.9; Estimated Glomerular Filt Rate > 60; Glucose Random 137 mg/dL (60-115); Magnesium 2.2 mg/dL (1.6-2.6); Potassium 4.3 mmol/L (3.3-5.1); Sodium 140 mmol/L (135-145)
[2021-06-02 18:23] LABS: B Type Natriuretic Peptide 11 pg/mL (<100); Troponin-I High Sensitivity 3.7 ng/L (<3.5-35.0)
[2021-06-02 18:29] LABS: Lactate Dehydrogenase 355 U/L (118-273)
[2021-06-02 18:41] LABS: Ferritin 666 ng/mL (20-250)
[2021-06-02 19:23] LABS: Procalcitonin 0.09 ng/mL
--- NOTE | 2021-06-02 19:36 | PC.NURSE ---
nurse to nurse report given to Cinthia
[2021-06-02 20:29] VITALS: BMI 30.6
[2021-06-02 20:38] VITALS: BP 138/84; PULSE 104; RESP 18; TEMP 37; O2SAT 96
[2021-06-02] MEDS: Doxycycline Hyclate 100 MG in 0.9 % Sodium Chloride 250 ML 166.67 MG IV (20:46)
[2021-06-02] MEDS: 0.9 % Sodium Chloride Flush 3 ML SYRINGE IVFLUSH (20:46)
[2021-06-02] MEDS: Melatonin 3 MG TABLET 6 MG PO (23:02)
[2021-06-02] MEDS: guaiFENesin DM 100/10/5 ML 5 ML SYRUP PO (23:02)
[2021-06-03] VITALS: BP 140/81; PULSE 111; RESP 16; TEMP 38; O2SAT 93
[2021-06-03 04:00] VITALS: BP 149/76; PULSE 111; RESP 16; TEMP 36.8; O2SAT 92
[2021-06-03 06:00] VITALS: BMI 31.4
[2021-06-03] MEDS: Doxycycline Hyclate 100 MG in 0.9 % Sodium Chloride 250 ML 166 MG IV (06:12)
[2021-06-03 08:00] VITALS: BP 126/81; PULSE 107; RESP 20; TEMP 36.9; O2SAT 92
--- NOTE | 2021-06-03 09:59 | MHC.CM.PN ---
spoke with pts girma [phone] who explins that she ism afraid for her and hopes that when he comes home that he will have o2 ..and ?vna ..she herslef soinded very weak she,thewy have 2 children that her sister is watching
[2021-06-03] MEDS: 0.9 % Sodium Chloride Flush 3 ML SYRINGE IVFLUSH ×2 (10:10→18:17)
[2021-06-03] MEDS: Rivaroxaban 10 MG TABLET PO (10:10)
[2021-06-03] MEDS: dexAMETHasone sod phosphate 4 MG/ML VIAL 6 MG IVPUSH (10:10)
[2021-06-03 12:00] VITALS: BP 119/74; PULSE 94; RESP 22; TEMP 36.9; O2SAT 94
--- NOTE | 2021-06-03 12:09 | MHC.CM.PN ---
Male 36 DX Covid. Patient continues to require supplemental oxygen. CM will follow for dc needs.
--- NOTE | 2021-06-03 14:00 | HO.PM.IMPN ---
Subjective Subjective Date of Service: 06/04/21 Interval History: F/u covid, resp failure, remains hypoxic but sating Ok with O2 Review of Systems Gen: no fever Resp: +sob, no cough CV: no chest, no BURNETT, no leg edema GI: No n/v, no abd pain Neuro: No confusion Physical Exam Vital Signs: Vital Signs: Last Vital Signs Temp 98.4 F 06/03/21 12:00 Pulse 94 06/03/21 12:00 Resp 22 H 06/03/21 12:00 BP 119/74 06/03/21 12:00 Pulse Ox 94 06/03/21 12:00 Oxygen Flow Rate 4 06/02/21 15:48 Body Mass Index 31.4 , General: AO X 3, no acute distress Resp: speaking in full sentences CVS: S1,S2,RRR GI: NT Skin: No rash Neuro: motor grossly intact Psych: appropriate affect Objective Data Current Medications Generic Name Dose Route Start Last Admin Trade Name Freq PRN Reason Stop Dose Admin Acetaminophen 650 mg 06/02/21 18:01 Acetaminophen 325 Mg Tablet PO Q6H PRN Pain, Mild (Pain Scale 1-3) Dexamethasone Sodium Phosphate 6 mg 06/03/21 09:00 06/03/21 10:10 Dexamethasone Sod Phosphate 4 Mg/Ml Vial IVPUSH 6 mg DAILY GIOVANA Administration Guaifenesin/Dextromethorphan 5 ml 06/02/21 22:29 06/02/21 23:02 Guaifenesin Dm 100/10/5 Ml 5 Ml Syrup PO 5 ml Q4H PRN Administration Cough Doxycycline Hyclate 100 mg/ 250 mls @ 166.67 mls/hr 06/02/21 19:00 06/03/21 07:44 Sodium Chloride IV Infused Q12H GIOVANA Infusion Melatonin 6 mg 06/02/21 18:01 06/02/21 23:02 Melatonin 3 Mg Tablet PO 6 mg BEDTIME PRN Administration Insomnia Pharmacy Consult 1 each 06/02/21 16:30 Consult Rx Perform Med Rec MISCELLANE ONCE PRN Consult order Rivaroxaban 10 mg 06/03/21 09:00 06/03/21 10:10 Rivaroxaban 10 Mg Tablet PO 10 mg DAILY GIOVANA Administration Sodium Chloride 3 ml 06/03/21 00:00 06/03/21 10:10 0.9 % Sodium Chloride Flush 3 Ml Syringe IVFLUSH 3 ml QSHIFT GIOVANA Administration Labs CBC & Chem 7: 06/02/21 17:35 06/02/21 17:35 Labs: Laboratory Results - last 24 hr 06/02/21 06/02/21 06/02/21 17:35 17:35 17:35 MCV 81.3 MCH 28.3 MCHC 34.7 RDW 13.3 Plt Count 210 MPV 9.3 L Immature Gran % (Auto) 0.5 H Neut % (Auto) 88.7 H Lymph % (Auto) 5.3 L [place] % (Auto) 5.5 Eos % (Auto) 0.0 Baso % (Auto) 0.0 Lymph # (Auto) 0.4 L [place] # (Auto) 0.4 Eos # (Auto) 0.0 Baso # (Auto) 0.0 Abs Immat Gran (auto) 0.03 Absolute Neuts (auto) 5.8 Absolute Nucleated RBC 0.000 Nucleated RBC % (auto) 0.0 PT 13.0 INR 1.1 D-Dimer 289 Anion Gap 14 Estim Creat Clear Calc 145.9 Estimated GFR > 60 Random Glucose 137 H Lactic Acid Calcium 8.8 Magnesium 2.2 Ferritin 666 H Total Bilirubin 0.7 Direct Bilirubin 0.4 AST 60 H ALT 60 H Alkaline Phosphatase 34 L Lactate Dehydrogenase 355 H Total Creatine Kinase 493 H Troponin I High Sens C-Reactive Protein 3.10 H B-Natriuretic Peptide Total Protein 7.0 Albumin 4.0 Procalcitonin 06/02/21 06/02/21 06/02/21 17:35 17:35 17:35 MCV MCH MCHC RDW Plt Count MPV Immature Gran % (Auto) Neut % (Auto) Lymph % (Auto) [place] % (Auto) Eos % (Auto) Baso % (Auto) Lymph # (Auto) [place] # (Auto) Eos # (Auto) Baso # (Auto) Abs Immat Gran (auto) Absolute Neuts (auto) Absolute Nucleated RBC Nucleated RBC % (auto) PT INR D-Dimer Anion Gap Estim Creat Clear Calc Estimated GFR Random Glucose Lactic Acid 1.1 Calcium Magnesium Ferritin Total Bilirubin Direct Bilirubin AST ALT Alkaline Phosphatase Lactate Dehydrogenase Total Creatine Kinase Troponin I High Sens 3.7 C-Reactive Protein B-Natriuretic Peptide 11 Total Protein Albumin Procalcitonin 0.09 Assessment and Plan (1) Pneumonia due to 2019 novel coronavirus: Status: Acute Assessment and Plan: ? ? 36 year old with acute hypoxic respiratory failure due to covid 19, nearly 2 weeks into the diseas, readmitted just a day after discharge.? plan:? Supportive care with oxygen, titriate to O2 sat 92 or better, IV Decadron D2, empiric Doxycyline D2. Consider Pulmonology consult if worsening Quality Stroke Does the patient have a stroke diagnosis?: No Reason for No Anti-thrombotic by Day Two: N/A - Med Ordered VTE Prior VTE?: No VTE Risk Level:: Medical - moderate - high VTE Device Contraindication: N/A - Device Ordered VTE Drug Contraindication: N/A - Med Ordered
[2021-06-03 16:00] VITALS: BP 136/83; PULSE 81; RESP 16; TEMP 36.4; O2SAT 88
--- NOTE | 2021-06-03 17:30 | PC.NURSE ---
Patient in [facility] for monitoring of COVID pneumonia with respiratory complications. Remains on 4L NC throughout the day, attempt to decrease to 3L, but patient desats with activity with evident tachycardia. No C/O pain. Meds as ordered. Lungs are clear/dim with noted loose cough. Patient states when he is able to expectorate, his mucous is yellowish pink. Resting comfortably.
[2021-06-03] MEDS: Doxycycline Hyclate 100 MG in 0.9 % Sodium Chloride 250 ML 166.67 MG IV (18:17)
[2021-06-03 20:00] VITALS: BP 128/77; PULSE 84; RESP 18; O2SAT 93
[2021-06-03] MEDS: Melatonin 3 MG TABLET 6 MG PO (21:11)
[2021-06-03] MEDS: guaiFENesin DM 100/10/5 ML 5 ML SYRUP PO (21:12)
[2021-06-04] VITALS (7 sets, daily range): BP systolic 111–126; BP diastolic 70–79; PULSE 74–112; RESP 15–20; TEMP 36.6–37.2; O2SAT 88–96; BMI 30.7
[2021-06-04] MEDS: 0.9 % Sodium Chloride Flush 3 ML SYRINGE IVFLUSH ×3 (00:22→22:16)
[2021-06-04] MEDS: dexAMETHasone sod phosphate 4 MG/ML VIAL 6 MG IVPUSH (09:27)
[2021-06-04] MEDS: Doxycycline Hyclate 100 MG in 0.9 % Sodium Chloride 250 ML 166.67 MG IV ×2 (09:28→22:15)
[2021-06-04] MEDS: Rivaroxaban 10 MG TABLET PO (09:28)
--- NOTE | 2021-06-04 10:37 | P.PNIM_ITS ---
Subjective Subjective Date of Service: 06/04/21 Interval History: F/u covid, resp failure, remains hypoxic but sating Ok with O2 Review of Systems Gen: no fever Resp: +sob, no cough CV: no chest, no BURNETT, no leg edema GI: No n/v, no abd pain Neuro: No confusion Physical Exam Vital Signs: Vital Signs: Last Vital Signs Temp 98.2 F 06/04/21 08:00 Pulse 83 06/04/21 08:00 Resp 18 06/04/21 08:00 BP 119/74 06/04/21 08:00 Pulse Ox 93 06/04/21 08:00 Oxygen Flow Rate 4 06/02/21 15:48 Body Mass Index 30.7 Const: Other: General: AO X 3, no acute distress Resp: ausculation avoided d/t covid status, speaks in full sentences, no a ccessory muscle use CVS: S1,S2,RRR GI: +BS, NT, no distention Skin: No rash Neuro: motor grossly intact Psych: appropriate affect Objective Data Current Medications Generic Name Dose Route Start Last Admin Trade Name Tayeq PRN Reason Stop Dose Admin Acetaminophen 650 mg 06/02/21 18:01 Acetaminophen 325 Mg Tablet PO Q6H PRN Pain, Mild (Pain Scale 1-3) Dexamethasone Sodium Phosphate 6 mg 06/03/21 09:00 06/04/21 09:27 Dexamethasone Sod Phosphate 4 Mg/Ml Vial IVPUSH 6 mg DAILY GIOVANA Administration Guaifenesin 600 mg 06/03/21 14:04 Guaifenesin La 600 Mg Tab.Er.12h PO BID PRN cough/congestion Guaifenesin/Dextromethorphan 5 ml 06/02/21 22:29 06/03/21 21:12 Guaifenesin Dm 100/10/5 Ml 5 Ml Syrup PO 5 ml Q4H PRN Administration Cough Doxycycline Hyclate 100 mg/ 250 mls @ 166.67 mls/hr 06/02/21 19:00 06/04/21 09:28 Sodium Chloride IV 166.67 mls/hr Q12H GIOVANA Administration Melatonin 6 mg 06/02/21 18:01 06/03/21 21:11 Melatonin 3 Mg Tablet PO 6 mg BEDTIME PRN Administration Insomnia Pharmacy Consult 1 each 06/02/21 16:30 Consult Rx Perform Med Rec MISCELLANE ONCE PRN Consult order Rivaroxaban 10 mg 06/03/21 09:00 06/04/21 09:28 Rivaroxaban 10 Mg Tablet PO 10 mg DAILY GIOVANA Administration Sodium Chloride 3 ml 06/03/21 00:00 06/04/21 09:28 0.9 % Sodium Chloride Flush 3 Ml Syringe IVFLUSH 3 ml QSHIFT GIOVANA Administration Labs CBC & Chem 7: 06/02/21 17:35 06/02/21 17:35 Microbiology Microbiology Results: Microbiology 06/02/21 17:35 Blood Culture - Preliminary Blood - Venous No growth after 24 hours. 06/02/21 17:22 Blood Culture - Preliminary Blood - Venous No growth after 24 hours. Assessment and Plan (1) Pneumonia due to 2019 novel coronavirus: Status: Acute Assessment and Plan: ? ? 36 year old with acute hypoxic respiratory failure due to covid 19, nearly 2 weeks into the [facility], readmitted just a day after discharge.? plan:? Supportive care with oxygen, titriate to O2 sat 92 or better, IV Decadron D2, empiric Doxycyline D2.. Will check with Pulmonology if maybe able to discharge home with O2 Quality Stroke Does the patient have a stroke diagnosis?: No Reason for No Anti-thrombotic by Day Two: N/A - Med Ordered VTE Prior VTE?: No VTE Risk Level:: Medical - moderate - high VTE Device Contraindication: N/A - Device Ordered VTE Drug Contraindication: N/A - Med Ordered
[2021-06-04] MEDS: Calcium Carbonate 750 MG TAB.CHEW PO ×2 (11:17→17:53)
--- NOTE | 2021-06-04 17:45 | P.CONPL_ITS ---
History of Present Illness History of Present Illness Consult date: 06/04/21 Chief complaint: COVID Respiratory Failure [facility] Social History Social History Household Members: Spouse Housing: House Do you presently have visiting nurse or other home services: No Unable to assess alcohol history related to: Unknown Patient Tobacco Use Status: Never used Tobacco Use of substances other than those prescribed or required for medical reasons: No Currently Displaying Signs/Symptoms of Drug Intoxication Withdrawal: No Any prior treatment program specific to substance use: No Have you been hit, kicked, punched, or otherwise hurt by someone within the past year? If so, by whom?: No Do you feel safe in your current relationship?: Yes Is there a partner from a previous relationship who is making you feel unsafe now?: No Are you made to feel afraid or neglected: No Advance Directives: No Advance Directives Information Provided: No Do you have thoughts of harming others: None Do you have a plan to hurt others: No Plan Recently lost weight without trying: No Eating poorly because of decreased appetite: No Poor oral hygiene: No service: No Current occupational status: unemployed Meds Allergies Allergy/AdvReac Type Severity Reaction Status Date / Time No Known Allergies Allergy Verified 06/02/21 15:47 Active Medications: Current Medications Generic Name Dose Route Start Last Admin Trade Name Freq PRN Reason Stop Dose Admin Acetaminophen 650 mg 06/02/21 18:01 Acetaminophen 325 Mg Tablet PO Q6H PRN Pain, Mild (Pain Scale 1-3) Calcium Carbonate 750 mg 06/04/21 10:55 06/04/21 11:17 Calcium Carbonate 750 Mg Tab.Chew PO 750 mg Q6H PRN Administration dyspepsis Dexamethasone Sodium Phosphate 6 mg 06/03/21 09:00 06/04/21 09:27 Dexamethasone Sod Phosphate 4 Mg/Ml Vial IVPUSH 6 mg DAILY GIOVANA Administration Guaifenesin 600 mg 06/03/21 14:04 Guaifenesin La 600 Mg Tab.Er.12h PO BID PRN cough/congestion Guaifenesin/Dextromethorphan 5 ml 06/02/21 22:29 06/03/21 21:12 Guaifenesin Dm 100/10/5 Ml 5 Ml Syrup PO 5 ml Q4H PRN Administration Cough Doxycycline Hyclate 100 mg/ 250 mls @ 166.67 mls/hr 06/02/21 19:00 06/04/21 11:20 Sodium Chloride IV Infused Q12H GIOVANA Infusion Melatonin 6 mg 06/02/21 18:01 06/03/21 21:11 Melatonin 3 Mg Tablet PO 6 mg BEDTIME PRN Administration Insomnia Pharmacy Consult 1 each 06/02/21 16:30 Consult Rx Perform Med Rec MISCELLANE ONCE PRN Consult order Rivaroxaban 10 mg 06/03/21 09:00 06/04/21 09:28 Rivaroxaban 10 Mg Tablet PO 10 mg DAILY GIOVANA Administration Sodium Chloride 3 ml 06/03/21 00:00 06/04/21 15:08 0.9 % Sodium Chloride Flush 3 Ml Syringe IVFLUSH Not Given QSHIFT [facility] Physical Exam Vital Signs: Vital Signs: Last Vital Signs Temp 98 F 06/04/21 15:35 Pulse 86 06/04/21 15:35 Resp 15 06/04/21 15:35 BP 118/70 06/04/21 15:35 Pulse Ox 93 06/04/21 15:35 Oxygen Flow Rate 4 06/02/21 15:48 Body Mass Index 30.7 Results Laboratory Findings CBC and BMP: 06/02/21 17:35 06/02/21 17:35 ABG, PT/INR, D-dimer: PT/INR, D-dimer PT 13.0 SEC (9.9-13.0) 06/02/21 17:35 INR 1.1 (0.9-1.1) 06/02/21 17:35 D-Dimer 289 NG/ML 06/02/21 17:35 Abnormal lab findings: Abnormal Labs 06/02/21 06/02/21 17:35 17:35 MPV 9.3 L Immature Gran % (Auto) 0.5 H Neut % (Auto) 88.7 H Lymph % (Auto) 5.3 L Lymph # (Auto) 0.4 L Random Glucose 137 H Ferritin 666 H AST 60 H ALT 60 H Alkaline Phosphatase 34 L Lactate Dehydrogenase 355 H Total Creatine Kinase 493 H C-Reactive Protein 3.10 H Microbiology: Microbiology 06/02/21 17:35 Blood - Venous Blood Culture - Preliminary No growth after 24 hours. 06/02/21 17:22 Blood - Venous Blood Culture - Preliminary No growth after 24 hours.
--- NOTE | 2021-06-04 17:48 | P.CONPL_ITS ---
History of Present Illness History of Present Illness Consult date: 06/04/21 Chief complaint: COVID Respiratory Failure Narrative: THIS GENTLEMAN IS SEEN BY ME FOR PULMONARY EVALUATION AND ADVISE. I HAVE REVIEWED THE HISTORY FROM THE MEDICAL RECORDS WELL HAD A GOOD CONVERSATION WITH PATIENT. HE CONTRACTED COVID-19 INFECTION FROM HIS 14 DAYS AGO. WAS ADMITTED TO [facility] ON 05/30 WITH ACUTE COVID SYMPTOMS. TREATED FOR 2 DAYS IN THE HOSPITAL WITH IV DEXAMETHASONE, STARTED IMPROVING AND WAS DISCHARGED HOME ON 06/01. HE RETURNED TO THE HOSPITAL ON 06/02 WITH INCREASED SHORTNESS OF BREATH ON MINIMAL EFFORT AND EVEN AT REST. HE WAS NOTED TO BE HYPOXEMIC AND REQUIRED OXYGEN 4 L/MINUTE ON ADMISSION. SINCE ADMISSION HE IS AGAIN ON DEXAMETHASONE 6 MG A DAY, ALONG WITH SYMPTOMATIC TREATMENT. AND IS GRADUALLY IMPROVING. HE HAS NO FEVER OR CHILLS, DENIES ANY CHEST PAIN, COUGH IS MINIMAL, NO EXPECTORATION STILL HAS SOME GENERALIZED WEAKNESS. NO SIGNIFICANT GI SYMPTOMS AT THIS TIME. Review of Systems Review of Systems: Yes all other systems are reviewed and are negative [facility] Social History Social History Household Members: Spouse Housing: House Do you presently have visiting nurse or other home services: No Unable to assess alcohol history related to: Unknown Patient Tobacco Use Status: Never used Tobacco Use of substances other than those prescribed or required for medical reasons: No Currently Displaying Signs/Symptoms of Drug Intoxication Withdrawal: No Any prior treatment program specific to substance use: No Have you been hit, kicked, punched, or otherwise hurt by someone within the past year? If so, by whom?: No Do you feel safe in your current relationship?: Yes Is there a partner from a previous relationship who is making you feel unsafe now?: No Are you made to feel afraid or neglected: No Advance Directives: No Advance Directives Information Provided: No Do you have thoughts of harming others: None Do you have a plan to hurt others: No Plan Recently lost weight without trying: No Eating poorly because of decreased appetite: No Poor oral hygiene: No service: No Current occupational status: unemployed Meds Allergies Allergy/AdvReac Type Severity Reaction Status Date / Time No Known Allergies Allergy Verified 06/02/21 15:47 Active Medications: Current Medications Generic Name Dose Route Start Last Admin Trade Name Freq PRN Reason Stop Dose Admin Acetaminophen 650 mg 06/02/21 18:01 Acetaminophen 325 Mg Tablet PO Q6H PRN Pain, Mild (Pain Scale 1-3) Calcium Carbonate 750 mg 06/04/21 10:55 06/04/21 11:17 Calcium Carbonate 750 Mg Tab.Chew PO 750 mg Q6H PRN Administration dyspepsis Dexamethasone Sodium Phosphate 6 mg 06/03/21 09:00 06/04/21 09:27 Dexamethasone Sod Phosphate 4 Mg/Ml Vial IVPUSH 6 mg DAILY GIOVANA Administration Guaifenesin 600 mg 06/03/21 14:04 Guaifenesin La 600 Mg Tab.Er.12h PO BID PRN cough/congestion Guaifenesin/Dextromethorphan 5 ml 06/02/21 22:29 06/03/21 21:12 Guaifenesin Dm 100/10/5 Ml 5 Ml Syrup PO 5 ml Q4H PRN Administration Cough Doxycycline Hyclate 100 mg/ 250 mls @ 166.67 mls/hr 06/02/21 19:00 06/04/21 11:20 Sodium Chloride IV Infused Q12H GIOVANA Infusion Melatonin 6 mg 06/02/21 18:01 06/03/21 21:11 Melatonin 3 Mg Tablet PO 6 mg BEDTIME PRN Administration Insomnia Pharmacy Consult 1 each 06/02/21 16:30 Consult Rx Perform Med Rec MISCELLANE ONCE PRN Consult order Rivaroxaban 10 mg 06/03/21 09:00 06/04/21 09:28 Rivaroxaban 10 Mg Tablet PO 10 mg DAILY GIOVANA Administration Sodium Chloride 3 ml 06/03/21 00:00 06/04/21 15:08 0.9 % Sodium Chloride Flush 3 Ml Syringe IVFLUSH Not Given QSHIFT [facility] Physical Exam Vital Signs: Vital Signs: Last Vital Signs Temp 98 F 06/04/21 15:35 Pulse 86 06/04/21 15:35 Resp 15 06/04/21 15:35 BP 118/70 06/04/21 15:35 Pulse Ox 93 06/04/21 15:35 Oxygen Flow Rate 4 06/02/21 15:48 Body Mass Index 30.7 Const: General: comfortable (ON ROOM AIR), no acute distress, alert and awake Orientation/consciousness: patient oriented x3 HENMT: Head: Yes normal to inspection General nose exam: No nasal polyps present and No nasal discharge present Face and sinus: Yes sinuses nontender Mouth: oropharynx normal Throat: Yes posterior oropharynx normal Eyes: General: appearance normal, both eyes and all related structures Neck: Neck: Yes normal visual inspection, Yes no lymphadenopathy, Yes trachea midline and Yes no JVD Thyroid: Thyroid normal Chest: Chest palpation & inspection: normal inspection of the chest, normal p alpation of entire chest wall and no tenderness Resp: Other: HAS GOOD BREATH SOUNDS ON BOTH SIDES, NO WHEEZES ARE HEARD. ONLY A FEW FINE INSPIRATORY CRACKLES OVER THE BASILAR AREAS. Cardio: Palpation: normal PMI Rate: regular rate Rhythm: regular rhythm Heart sounds: no gallops and no murmurs Peripheral pulses: Peripheral pulses 2+ throughout GI: Palpation (GI): Soft to palpation, nontender, No hepatosplenomegaly present and no masses Auscultation: normal bowel sounds Back/Spine/Pelvis: Thoracic/Lumbar Spine: thoracic and lumbar spine normal to inspection Skin: General skin exam: no rashes or lesions noted Neuro: General: patient oriented x3 and no focal motor deficits Cranial nerves: Yes CN's II-XII intact bilaterally Extrem: General: Yes normal to inspection, Yes no clubbing, cyanosis or edema and Yes no calf tenderness Psych: Speech and movement: Normal speech and movement present Results Laboratory Findings CBC and BMP: 06/02/21 17:35 06/02/21 17:35 ABG, PT/INR, D-dimer: PT/INR, D-dimer PT 13.0 SEC (9.9-13.0) 06/02/21 17:35 INR 1.1 (0.9-1.1) 06/02/21 17:35 D-Dimer 289 NG/ML 06/02/21 17:35 Abnormal lab findings: Abnormal Labs 06/02/21 06/02/21 17:35 17:35 MPV 9.3 L Immature Gran % (Auto) 0.5 H Neut % (Auto) 88.7 H Lymph % (Auto) 5.3 L Lymph # (Auto) 0.4 L Random Glucose 137 H Ferritin 666 H AST 60 H ALT 60 H Alkaline Phosphatase 34 L Lactate Dehydrogenase 355 H Total Creatine Kinase 493 H C-Reactive Protein 3.10 H Microbiology: Microbiology 06/02/21 17:35 Blood - Venous Blood Culture - Preliminary No growth after 24 hours. 06/02/21 17:22 Blood - Venous Blood Culture - Preliminary No growth after [address] scan - chest: image reviewed Additional studies: CTA OF THE CHEST, NEGATIVE FOR PULMONARY EMBOLISM, BILATERAL ALVEOLAR DENSITIES, WORSE THAN , ARE NOTED., CONSISTENT WITH COVID PNEUMONIA Assessment and Plan (1) Pneumonia due to 2019 novel coronavirus: Status: Acute THIS PATIENT HAS PERSISTENT COVID RELATED PNEUMONIA CLINICALLY HE SEEMS TO IMPROVED TODAY, MY RECOMMENDATION WOULD BE TO COMPLETE THE COURSE OF DEXAMETHASONE. 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 FOR A COURSE OF 10 DAYS. HE MAY CONTINUE TO HAVE RESIDUAL PULMONARY DISEASE FOR SEVERAL WEEKS, AND WOULD NEED TO BE FOLLOWED WORK CLOSELY. (2) Acute respiratory failure with hypoxia: Status: Acute HE STILL HAS HYPOXEMIA, BUT OXYGEN REQUIREMENT HAS DECREASED. CURRENTLY DOING OKAY AT REST, MAY NEED PORTABLE OXYGEN FOR ACTIVITY. I THINK HE CAN BE EVALUATED FOR HOME OXYGEN THERAPY, AND COULD BE DISCHARGED HOME IN 1 OR 2 DAYS, TO BE FOLLOWED OUTPATIENT Procedures Date of Service Date of Service: 06/04/21
[2021-06-04] MEDS: Melatonin 3 MG TABLET 6 MG PO (22:16)
[2021-06-04] MEDS: guaiFENesin DM 100/10/5 ML 5 ML SYRUP PO (22:16)
[2021-06-04] MEDS: Magnesium Hydrox/Alum Hydrox 30 ML ORAL.SUSP 15 ML PO (22:16)
[2021-06-05] VITALS: BP 104/69; PULSE 65; RESP 14; TEMP 36.8; O2SAT 93
[2021-06-05 04:00] VITALS: BP 119/73; PULSE 69; RESP 14; TEMP 36.4; O2SAT 95
[2021-06-05 07:17] VITALS: BP 122/64; PULSE 58; RESP 18; TEMP 36; O2SAT 93
[2021-06-05] MEDS: dexAMETHasone sod phosphate 4 MG/ML VIAL 6 MG IVPUSH (09:29)
[2021-06-05] MEDS: Doxycycline Hyclate 100 MG in 0.9 % Sodium Chloride 250 ML 166.67 MG IV (09:29)
[2021-06-05] MEDS: 0.9 % Sodium Chloride Flush 3 ML SYRINGE IVFLUSH (09:29)
[2021-06-05] MEDS: Rivaroxaban 10 MG TABLET PO (09:29)
--- NOTE | 2021-06-05 09:50 | P.PNPL_ITS ---
Subjective Subjective Date of Service: 06/05/21 Principal diagnosis: COVID pNEUMONIA Interval history: THIS GENTLEMAN WITH BILATERAL COVID PNEUMONIA, AND RESPIRATORY DISTRESS, IS DEFINITELY IMPROVED. IN THE LAST 24 HOURS HIS BREATHING HAS BEEN STABLE, WITHOUT ANY DISTRESS. HE HAS REMAINED ON ROOM AIR LONG HE IS IN THE BED, HE HAS ONLY MILD DESATURATION ON WALKING. Objective Data Labs CBC & Chem 7: 06/02/21 17:35 06/02/21 17:35 Microbiology Microbiology Results: Microbiology 06/02/21 17:35 Blood - Venous Blood Culture - Preliminary No growth after 48 hours. 06/02/21 17:22 Blood - Venous Blood Culture - Preliminary No growth after 48 hours. Physical Exam Vital Signs: Vital Signs: Last Vital Signs Temp 96.8 F 06/05/21 07:17 Pulse 58 06/05/21 07:17 Resp 18 06/05/21 07:17 BP 122/64 06/05/21 07:17 Pulse Ox 93 06/05/21 07:17 Oxygen Flow Rate 4 06/02/21 15:48 Body Mass Index 30.7 REVIEWED AND ALL VITAL SIGNS SEEMED TO BE NORMAL Const: General: healthy appearing, comfortable, no acute distress, alert and awake Orientation/consciousness: patient oriented x3 HENMT: Head: Yes normal to inspection General nose exam: No nasal polyps present and No nasal discharge present Face and sinus: Yes sinuses nontender Mouth: oropharynx normal Throat: Yes posterior oropharynx normal Eyes: General: appearance normal, both eyes and all related structures Neck: Neck: Yes normal visual inspection, Yes no lymphadenopathy, Yes trachea midline and Yes no JVD Thyroid: Thyroid normal Chest: Chest palpation & inspection: normal inspection of the chest, normal palpation of entire chest wall and no tenderness Resp: Other: HE DOES HAVE GOOD BREATH SOUNDS ON BOTH SIDES, NO WHEEZES ARE HEARD. ALSO NO CREPITATIONS WERE HEARD TODAY. Cardio: Palpation: normal PMI Rate: regular rate Rhythm: regular rhythm Heart sounds: no gallops and no murmurs Peripheral pulses: Peripheral puls es 2+ throughout GI: Palpation (GI): Soft to palpation, nontender, No hepatosplenomegaly present and no masses Auscultation: normal bowel sounds Back/Spine/Pelvis: Thoracic/Lumbar Spine: thoracic and lumbar spine normal to inspection Skin: General skin exam: no rashes or lesions noted Neuro: General: patient oriented x3 and no focal motor deficits Cranial nerves: Yes CN's II-XII intact bilaterally Extrem: General: Yes normal to inspection, Yes no clubbing, cyanosis or edema and Yes no calf tenderness Psych: Speech and movement: Normal speech and movement present Procedures Date of Service Date of Service: 06/05/21 Assessment and Plan Assessment and plan (1) Pneumonia due to 2019 novel coronavirus: Problem details: HE HAS BILATERAL ALVEOLAR DENSITIES CONSISTENT WITH COVID RELATED PNEUMONIA/PNEUMONITIS. CLINICALLY IMPROVED, TX COMPLETE THE COURSE OF DEXAMETHASONE. THEN HE SHOULD BE ON PREDNISONE 40 MG A DAY FOR 5 DAYS, AND DECREASE BY 10 MG EVERY 5 DAYS. COMPLETE THE COURSE OF DOXYCYCLINE. PATIENT SHOULD BE FOLLOWED UP OUTPATIENT AND MAY NEED TO HAVE A REPEAT CT SCAN IN ABOUT 3-4 WEEKS. Status: Acute (2) Acute respiratory failure with hypoxia: Problem details: HYPOXEMIA DUE TO COVID PNEUMONITIS IS IMPROVED. CURRENTLY DOING WELL ON ROOM AIR, MAY BE CHECKED FOR HOME OXYGEN, BY 6 MINUTES WALK BEFORE DISCHARGE. IT IS EXPECTED THAT HE WOULD NOT NEED REQUIRE OXYGEN THERAPY AT HOME, BUT IF HE DOES DESATURATE ON WALKING THEN HE CAN HAVE A PORTABLE UNIT FOR A FEW WEEKS Status: Acute Time Spent With Patient Time: Total time spent is greater than 50% in coordination of care (as documented) at patient's floor/unit and/or counseling patient: Time with patient: 15 - 24 minutes Progress Note: Quality Stroke Does the patient have a stroke diagnosis?: No Reason for No Anti-thrombotic by Day Two: N/A - Med Ordered
--- NOTE | 2021-06-05 09:52 | PM.DS ---
DS: Providers Provider Date of Service: 06/05/21 Date of admission: 06/02/21 18:02 Primary care physician: Amparo Clay MD Consults: 06/04/21 10:41 Consult to Pulmonology Routine Consulting Provider: Rolf Hernandez Reason for consultation: covid 19 with persistent hypoxia DS: Diagnosis Discharge Diagnosis (1) Pneumonia due to 2019 novel coronavirus: Status: Acute (2) Acute respiratory failure with hypoxia: Status: Acute DS: Medications Discharge Medications Home Medications: Previous Rx's Medication Instructions Recorded dexamethasone 6 mg tablet 6 mg PO DAILY #7 tab 06/01/21 (Decadron) guaifenesin 100 mg/5 mL oral liquid 100 mg PO Q6H PRN #473 ml 06/01/21 DS: Summary Hospital Course Hospital Course: Chief Complaint: shortness of breath, known covid patient discharged yesterday 36 year old male healthy, unvaccinated for covid who contracted covid from about 14 days ago. He was admitted to the hospital for hypoxia and discharged yesterday after 2 days in the hospital with oxygen and steroid therapy. He returns today because his oxygen level has been droping to as los as 85 to 88 at home, although without any significant increased in his shortness of breath.? CXR shows progressive pulmonary infiltrate consistent? with worsen covid.? His oxygen level is now 94% 4 liters by nasal canula. Hospital course: patient is known covid patient that came back to hospical just 1 day after discharge and was hypoxic. He requiredd oxygen by nasal canula and continued treatment with Dexamethasone, empiric Doxycyline and cough medication as needed. He has signficantly improved with resting Oxygen ranging from 92 to 94 but signficantly desat with low level activity and therefore he's going home with oxygen and for activity and will continue self monitoring with pulse oxymetry at home. To finish 10 day course of Dexamethasone ( Last dose 06/09). He was seen by applications support lead Dr. Hernandez who guided his care. Time Spent with Patient Time attestation: Total time spent providing and/or coordinating discharge services: Discharge coordination time: Greater than 30 minutes Quality: Stroke Does the patient have a stroke diagnosis?: No Physical Exam Vital Signs: Vital Signs: Last Vital Signs Temp 96.8 F 06/05/21 07:17 Pulse 58 06/05/21 07:17 Resp 18 06/05/21 07:17 BP 122/64 06/05/21 07:17 Pulse Ox 93 06/05/21 07:17 Oxygen Flow Rate 4 06/02/21 15:48 Body Mass Index 30.7 DS: Data Data Completed and Pending Labs on day of discharge: Preliminary micro results at discharge 06/02/21 17:35 Blood Culture - Preliminary Blood - Venous No growth after 48 hours. 06/02/21 17:22 Blood Culture - Preliminary Blood - Venous No growth after 48 hours. Discharge Plan Discharge Anticipated Discharge Date/Time: 06/05/21 09:46 Patient Disposition: Home, Self-Care Discharge Diagnosis: Duplicate Referrals: Amparo Clay MD [Primary Care Provider] - 1 Week Discharge Medications: Continued guaifenesin 100 mg/5 mL Liquid 100 mg PO Q6H PRN (Reason: cough) Qty: 473 RF: 0 dexamethasone [Decadron] 6 mg tablet 6 mg PO DAILY Qty: 7 RF: 0 Discharge Orders: Discharge Order (Routine); Ordered 06/05/21 Ordered By: Sharath Paiz Diet: advance to usual diet Activity on Discharge: As tolerated Stand Alone Forms: Patient Portal Discharge page Care Plan Goals: Full recovery from covid 19 hypoxia Health Concerns: Hypoxia from covid 19 virs Plan of Treatment: use oxygen as directed (2 to 3 liters to maintain oxygen at 92 or better, take cough medication as needed. Take Dexamethasone until June 09 For most adults with COVID-19 illness, isolation and precautions?can be discontinued 10 days after symptom onset?and after resolution of fever for at least 24 hours, without the use of fever-reducing medications, and with improvement of other symptoms... monitor O2, if persistently less than 90% return to ED Assessment: As above
== END 2021-06-05 12:18 | disposition home or self-care (01) | DRG 137 ==
LOC: HO.ED 17:39 → HO.EDOVER 18:13 → HO.IMC 19:02
PROVIDERS: Nurse Practitioner Family; Admitting Provider Internal Medicine; Emergency Provider Emergency Medicine Emergency Medical Services; PCP Internal Medicine; Visit Provider Internal Medicine
DX: U07.1 COVID-19 (principal); J96.01 Acute respiratory failure with hypoxia; J12.89 Other viral pneumonia
CPT/HCPCS: 36415; 71045; 80048; 80076; 82550; 82728; 83605; 83615; 83735; 83880; 84145; 84484; 85025; 85379; 85610; 86140; 87040; 93005; 99285; J1100